=== PATIENT | female | born 1965 | race Asian ===

== ENCOUNTER 2020-07-17 13:41 | Emergency (ER) | payer MEDICAID ==
[~2020-07-17] VITALS: Ht 162.6 cm; Wt 77.3 kg
[2020-07-17 13:42] VITALS: BP 131/79
== END 2020-07-17 14:40 | disposition home or self-care (01) ==
LOC: EMS 13:45
DX: Z20.828 Contact with and (suspected) exposure to other viral communicable diseases (principal); I10 Essential (primary) hypertension; E78.00 Pure hypercholesterolemia, unspecified
CPT/HCPCS: 99283; U0003